=== PATIENT | male | born 1950 | race Two or more races ===

== ENCOUNTER 2020-04-27 23:36 | Emergency (ER) | payer OTHER ==
[~2020-04-27] VITALS: Ht 182.9 cm; Wt 86.2 kg
[2020-04-27] MEDS ORDERED: AMOX1TAB5 (23:56)
[2020-04-28] MEDS ORDERED: TAMS0.4C PO (05:55)
== END 2020-04-28 06:11 | disposition home or self-care (01) ==
LOC: ER 23:36
DX: N40.1 Benign prostatic hyperplasia with lower urinary tract symptoms (principal); R33.8 Other retention of urine; R31.29 Other microscopic hematuria; K59.09 Other constipation; K76.0 Fatty (change of) liver, not elsewhere classified; Z03.818 Encounter for observation for suspected exposure to other biological agents ruled out